=== PATIENT | male | born 1970 | race Caucasian/White ===

== ENCOUNTER 2019-06-15 10:13 | Emergency (ER) | payer BC ==
[~2019-06-15] VITALS: Ht 175.3 cm; Wt 86.2 kg
[2019-06-15 10:13] VITALS: BP_SYST 144
[2019-06-15 10:30] VITALS: BP_SYST 144
[2019-06-15] MEDS ORDERED: DIPH-TET-PERTUS Vaccine 0.5 ML VIAL (ADACEL) I.M. ONE (10:30)
[2019-06-15] MEDS ORDERED: BACITRACIN 1 GM OINT TP ONE (10:30)
[2019-06-15] MEDS ORDERED: LIDOCAINE 1% 10 MG/ML, 20 ML MDV SUBCUT ONE (10:30)
== END 2019-06-15 11:38 | disposition home or self-care (01) ==
LOC: SED 10:13
DX: S61.314A Laceration without foreign body of right ring finger with damage to nail, initial encounter (principal); S67.194A Crushing injury of right ring finger, initial encounter; W27.8XXA Contact with other nonpowered hand tool, initial encounter; Y93.89 Activity, other specified; Y92.89 Other specified places as the place of occurrence of the external cause; Y99.8 Other external cause status
CPT/HCPCS: 90715; 99285